=== PATIENT | female | born 2000 | race Hispanic/Latino ===

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

== ENCOUNTER 2020-01-26 09:31 | Observation (INO) | payer MEDICAID ==
[~2020-01-26] VITALS: Ht 165.1 cm; Wt 71.7 kg
[2020-01-26] MEDS ORDERED: LACTATED RINGERS 1000ML IV SCH (10:15)
[2020-01-26] MEDS ORDERED: LACTATED RINGERS 1000ML 1,000 ML IV SCH (10:15)
[2020-01-26 10:33] LABS: BASOPHILS % (AUTO) 0.3 % (0.0-5.0); EOSINOPHILS % (AUTO) 0.1 % (0.0-8.0); LYMPHOCYTES % (AUTO) 11.5 % (21.0-51.0); MEAN CORPUSCULAR HEMOGLOBIN 30.8 pg (27.0-33.0); MEAN CORPUSCULAR HGB CONC 35.3 g/dL (32.0-36.0); MEAN CORPUSCULAR VOLUME 87.4 fL (80-100); MONOCYTES % (AUTO) 3.6 % (3.0-13.0); NEUTROPHILS % (AUTO) 84.2 % (40.0-77.0); PLATELET COUNT (AUTO) 209 K/uL (130-400); RED BLOOD CELL COUNT(AUTO) 4.35 MIL/uL (4.00-5.50); RED CELL DISTRIBUTION WIDTH 11.3 % (11.0-15.5); WHITE BLOOD COUNT (AUTO) 11.6 K/uL (4.8-10.8)
[2020-01-26 10:36] VITALS: BP 126/59
[2020-01-26 10:52] LABS: ALBUMIN 3.7 g/dL (3.5-5.0); BILIRUBIN,DIRECT 0.2 mg/dL (0.0-0.3); BILIRUBIN,TOTAL 0.5 mg/dL (0.2-1.0); CREATININE 0.7 mg/dL (0.5-1.5); POTASSIUM 3.8 mmol/L (3.5-5.1); TOTAL PROTEIN, SERUM 6.8 g/dL (6.0-8.3)
[2020-01-26] MEDS: ONDANSETRON HCL 4 MG/2 ML VIAL IVP PRN ×3 (11:22→20:59)
[2020-01-26] MEDS: LACTATED RINGERS 1000ML 1,000 ML IV SCH ×2 (12:47→20:56)
[2020-01-26 12:52] LABS: APPEARANCE,URINE Clear (CLEAR); BILIRUBIN,URINE Negative (NEGATIVE); COLOR,URINE Yellow (YELLOW); GLUCOSE, URINE (UA) Negative (NEGATIVE); KETONES,URINE 40 mg/dL (NEGATIVE); LEUKOCYTE ESTERASE ,URINE Trace (NEGATIVE); NITRATE,URINE Negative (NEGATIVE); OCCULT BLOOD,URINE Negative (NEGATIVE); PROTEIN,URINE Negative (NEGATIVE)
[2020-01-26 13:37] LABS: BACTERIA,URINE Rare /HPF (None Seen); MUCUS,URINE Moderate LPF (None Seen); RBC,URINE 0-1 /HPF (0-1); SQUAMOUS EPITHELIAL CELL,UR Rare /HPF (0-2); WBC,URINE 0-1 /HPF (0-1)
[2020-01-26 16:16] VITALS: BP 102/47
[2020-01-26] MEDS ORDERED: PROM25TA7 PO (19:02)
[2020-01-26] MEDS ORDERED: PNV#1COM14 PO (19:02)
[2020-01-26 19:32] VITALS: BP 100/57
[2020-01-27 00:24] VITALS: BP 114/73
[2020-01-27] MEDS: ONDANSETRON HCL 4 MG/2 ML VIAL IVP PRN ×3 (03:09→17:51)
[2020-01-27 04:30] VITALS: BP 112/66
[2020-01-27] MEDS: LACTATED RINGERS 1000ML 1,000 ML IV SCH ×2 (05:04→13:10)
[2020-01-27 07:30] VITALS: BP 106/58
--- NOTE | 2020-01-27 09:15 | NUR ---
DR. VASILIY CEE WAS CALLED RE PATIENT BEING AT [facility] AND UPDATE GIVEN. PATIENT WAS GIVEN ZOFRAN IV THIS A.M. FOR NAUSEA BUT HAS HAD NO EMESIS SINCE ZOFRAN WAS INITIATED AFTER ADMISSION. PATIENT IS STABLE AND DENIES PAIN. ORDER GIVEN FOR TAYLOR DIET AND ORDER WAS PLACED FOR LUNCH.
--- NOTE | 2020-01-27 11:30 | NUR ---
ATTEMPTED TO DO VITAL SIGNS BUT PATIENT WAS SLEEPING AND NONE WERE DONE.
--- NOTE | 2020-01-27 13:00 | NUR ---
PATIENT STATES WAS NOT GIVEN A TAYLOR DIET BUT A REGULAR DIET WITH CHICKEN, SQUASH AND CORN AND TOLERATED DIET WELL WITHOUT ANY NAUSEA AFTER EATING. INFORMED PATIENT THE DR. CEE IS PENDING TO ROUND AND WILL NOTIFY HIME IF HE DOESN'T COME SOON.
[2020-01-27 16:00] VITALS: BP 100/55
--- NOTE | 2020-01-27 16:30 | NUR ---
DR. CEE WAS CALLED AND UPDATE GIVEN ON PATIENT. PATIENT DENIES ANY FURTHER NAUSEA AND DR. CEE WAS MADE AWARE OF PATIENT TOLERATING DIET. INDICATED WILL BE ROUNDING AFTER DELIVERY IS DONE AT [facility].
--- NOTE | 2020-01-27 17:00 | NUR ---
DR. CEE ROUNDED AT THIS TIME AND SCRIPT FOR ZOFRAN ISSUED AND DISCHARGE ORDER. PATIENT INSTRUCTED TO CALL AND MAKE APPOINTMENT WITH DR. PLUMMER IN ONE WEEK.
--- NOTE | 2020-01-27 18:25 | NUR ---
PATIENT WAS TAKEN VIA W/C TO FAMILY VEHICLE AND WAS DISCHARGED TO HER BOYFRIEND IN STABLE CONDITION. PATIENT DENIES ANY PAIN OR NAUSEA AND VOMITING BUT WAS GIVEN DOSE OF ZOFRAN PRIOR TO DISCHARGE TO TOLERATED CAR MOTION AND ACTIVITIES WHILE PICKING UP SCRIPT.
== END 2020-01-27 18:25 | disposition home or self-care (01) ==
LOC: WSH 09:31
PROVIDERS: ADMIT Obstetrics & Gynecology; ATTEND Obstetrics & Gynecology
DX: O21.0 Mild hyperemesis gravidarum (principal); Z3A.01 Less than 8 weeks gestation of pregnancy
CPT/HCPCS: 36415; 80048; 80076; 81001; 85025; 96361 ×2; 96374; 96376 ×2; G0378 ×17; J2405 ×6; J7120 ×3

== ENCOUNTER 2020-02-03 11:34 | Emergency (ER) | payer MEDICAID ==
[~2020-02-03 11:34] MED LIST: PNV#1COM14 PO; PROM25TA7 PO
[2020-02-03] MEDS ORDERED: ONDANSETRON HCL 4 MG/2 ML VIAL ONE (12:01)
[2020-02-03] MEDS ORDERED: LACTATED RINGERS 1000ML 1,000 ML IV ONE (12:01)
[2020-02-03 12:04] LABS: BASOPHILS % (AUTO) 0.3 % (0.0-5.0); EOSINOPHILS % (AUTO) 0.4 % (0.0-8.0); HEMATOCRIT 43.8 % (36-48); LYMPHOCYTES % (AUTO) 26.6 % (21.0-51.0); MEAN CORPUSCULAR HEMOGLOBIN 30.7 pg (27.0-33.0); MEAN CORPUSCULAR HGB CONC 35.2 g/dL (32.0-36.0); MEAN CORPUSCULAR VOLUME 87.3 fL (80-100); NEUTROPHILS % (AUTO) 66.4 % (40.0-77.0); PLATELET COUNT (AUTO) 260 K/uL (130-400); RED BLOOD CELL COUNT(AUTO) 5.02 MIL/uL (4.00-5.50); RED CELL DISTRIBUTION WIDTH 11.2 % (11.0-15.5); WHITE BLOOD COUNT (AUTO) 11.5 K/uL (4.8-10.8)
[2020-02-03 12:08] LABS: APPEARANCE,URINE Cloudy (CLEAR); BILIRUBIN,URINE Negative (NEGATIVE); COLOR,URINE Yellow (YELLOW); GLUCOSE, URINE (UA) Negative (NEGATIVE); KETONES,URINE 15 mg/dL (NEGATIVE); LEUKOCYTE ESTERASE ,URINE Small (NEGATIVE); NITRATE,URINE Negative (NEGATIVE); OCCULT BLOOD,URINE Negative (NEGATIVE); PH,URINE 6.5 (5.0-8.0); PROTEIN,URINE Negative (NEGATIVE)
[2020-02-03 12:26] LABS: BACTERIA,URINE Few /HPF (None Seen); MUCUS,URINE Few LPF (None Seen); RBC,URINE 0-1 /HPF (0-1); SQUAMOUS EPITHELIAL CELL,UR Few /HPF (0-2)
[2020-02-03 12:30] LABS: CREATININE 0.8 mg/dL (0.5-1.5); POTASSIUM 3.3 mmol/L (3.5-5.1)
[2020-02-03 13:02] LABS: ALBUMIN 4.4 g/dL (3.5-5.0); BILIRUBIN,TOTAL 0.5 mg/dL (0.2-1.0); TOTAL PROTEIN, SERUM 8.1 g/dL (6.0-8.3)
[2020-02-03] MEDS ORDERED: POTASSIUM BICARB/CIT AC 25 MEQ TABLET.EFF ONE (13:21)
== END 2020-02-03 14:56 | disposition home or self-care (01) ==
LOC: EDH 11:34
DX: O21.9 Vomiting of pregnancy, unspecified (principal); Z3A.09 9 weeks gestation of pregnancy; Z87.891 Personal history of nicotine dependence
CPT/HCPCS: 36415; 80053; 81001; 84702; 85025; 96361; 96374; 96375; 99285; J2405; J7120; 96365

== ENCOUNTER 2020-07-22 19:32 | Observation (INO) | payer MEDICAID, OTHER ==
[2020-07-22 20:52] LABS: APPEARANCE,URINE Clear (CLEAR); BILIRUBIN,URINE Negative (NEGATIVE); COLOR,URINE Yellow (YELLOW); GLUCOSE, URINE (UA) Negative (NEGATIVE); KETONES,URINE Negative (NEGATIVE); LEUKOCYTE ESTERASE ,URINE Small (NEGATIVE); NITRATE,URINE Negative (NEGATIVE); OCCULT BLOOD,URINE Negative (NEGATIVE); PH,URINE 6.5 (5.0-8.0); PROTEIN,URINE Negative (NEGATIVE)
[2020-07-22 20:58] LABS: AMPHET/METH SCREEN,URINE NEGATIVE (NEGATIVE); BARBITURATE SCREEN, URINE NEGATIVE (NEGATIVE); BENZODIAZEPINES SCREEN,URINE NEGATIVE (NEGATIVE); CANNABINOID SCREEN,URINE NEGATIVE (NEGATIVE); COCAINE SCREEN,URINE NEGATIVE (NEGATIVE); OPIATE SCREEN,URINE NEGATIVE (NEGATIVE); PHENCYCLIDINE SCREEN,URINE NEGATIVE (NEGATIVE)
[2020-07-22 21:16] LABS: BACTERIA,URINE Few /HPF (None Seen); MUCUS,URINE Few LPF (None Seen); RBC,URINE 0-1 /HPF (0-1); SQUAMOUS EPITHELIAL CELL,UR Few /HPF (0-2)
== END 2020-07-22 22:00 | disposition home or self-care (01) ==
LOC: EDH 19:32 → LDH 20:16
PROVIDERS: ADMIT Obstetrics & Gynecology; ATTEND Obstetrics & Gynecology
DX: O26.893 Other specified pregnancy related conditions, third trimester (principal); R10.30 Lower abdominal pain, unspecified; O99.891 Other specified diseases and conditions complicating pregnancy; M54.5 Low back pain; Z3A.33 33 weeks gestation of pregnancy
CPT/HCPCS: 59025; 80305; 81001; 87088; 99284; G0378 ×2